=== PATIENT | female | born 2000 | race Two or more races ===

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

== ENCOUNTER 2021-11-21 21:56 | Emergency (ER) | payer OTHER ==
[~2021-11-21] VITALS: Ht 162.6 cm; Wt 81.6 kg
[~2021-11-21 21:56] MED LIST changes: +IRON325 MG PO
== END 2021-11-22 03:21 | disposition home or self-care (01) ==
LOC: EMR PED 21:56
DX: R10.2 Pelvic and perineal pain (principal)